=== PATIENT | female | born 1955 | race African-American/Black ===

== ENCOUNTER 2019-01-17 06:41 | Emergency (ER) | payer MEDICAID ==
[~2019-01-17] VITALS: Ht 160 cm; Wt 72.0 kg
[~2019-01-17 06:41] MED LIST: AMLO5TAB88 PO; ASPI-1160 PO; GLIP5TAB12 PO; INSLIS SUBCUT; LANTUSUD SUBCUT; LIP40 PO; LJ2 PO; METO25TA6 PO
[2019-01-17] MEDS ORDERED: ONDANSETRON HCL 4MG/2ML INJ IV STA (06:54)
[2019-01-17] MEDS ORDERED: SODIUM CHLORIDE 0.9% 1,000 ML IV ONE (06:54)
[2019-01-17 07:18] LABS: BASOPHILS % 1.3 % (0.0-2.0); EOSINOPHILS % 0.8 % (0.0-5.0); HEMATOCRIT. 37.3 % (36.0-48.0); HEMOGLOBIN. 12.2 g/dL (12.0-16.0); LYMPHOCYTES % 30.6 % (20.0-50.0); MEAN CORPUSCULAR HEMOGLOBIN 30.6 pg (28.0-32.0); MEAN PLATELET VOLUME 10.5 fl (7.4-10.4); MONOCYTES % 6.5 % (2.0-8.0); NEUTROPHILS % 60.8 % (40.0-76.0); PLATELET 243 x1000/uL (130-400); RED BLOOD CELL COUNT 3.97 mill/uL (4.2-5.4); RED CELL DISTRIBUTION WIDTH 13.6 % (11.6-14.6)
[2019-01-17 07:21] LABS: CHLORIDE 99 mEq/L (98-107)
[2019-01-17 07:22] LABS: INR 0.9; PROTHROMBIN TIME 9.7 sec (9.6-11.0)
[2019-01-17 09:07] LABS: CLARITY URINE CLEAR (CLEAR); COLOR URINE YELLOW (YELLOW); KETONES URINE 1+ (NEGATIVE); LEUKOCYTE ESTERASE URINE NEGATIVE (NEGATIVE); NITRITE URINE NEGATIVE (NEGATIVE); OCCULT BLOOD URINE 1+ (NEGATIVE); PH URINE 6.5 (4.5-8.0); PROTEIN URINE 3+ (NEGATIVE); SPECIFIC GRAVITY URINE 1.015 (1.005-1.030); UROBILINOGEN URINE 0.2 E.U./dL (0.2-1.0)
[2019-01-17] MEDS ORDERED: CEFTRIAXONE 1 G PREMIX 50 ML IV ONE (09:30)
[2019-01-17] MEDS ORDERED: LORAZEPAM 2MG/ML CPJ IV ONE (09:30)
[2019-01-17 13:00] VITALS: BP 138/72
== END 2019-01-17 13:20 | disposition home or self-care (01) ==
LOC: ER 06:50
DX: B34.9 Viral infection, unspecified (principal); N39.0 Urinary tract infection, site not specified; E11.22 Type 2 diabetes mellitus with diabetic chronic kidney disease; I12.9 Hypertensive chronic kidney disease with stage 1 through stage 4 chronic kidney disease, or unspecified chronic kidney disease; N18.9 Chronic kidney disease, unspecified; E11.65 Type 2 diabetes mellitus with hyperglycemia; Z79.4 Long term (current) use of insulin; R19.7 Diarrhea, unspecified; Z79.899 Other long term (current) drug therapy
CPT/HCPCS: 36415; 80053; 81003; 83690; 84484; 85025; 85610; 93005; 96361; 96365; 96375; 99284; J0696; J2060; J2405; J7030

== ENCOUNTER 2019-10-14 17:00 | Inpatient (IN) | payer MEDICAID ==
[~2019-10-14] VITALS: Ht 154.9 cm; Wt 72.6 kg
[~2019-10-14 17:00] MED LIST changes: -ASPI-1160 PO; +ASPI-1393 PO; +DILT30TA3 PO; +LORA2DIS5 IJ; +METH500T6 PO; +PANT40TA4 MT; +TRAM50TA3 PO
[2019-10-14] MEDS ORDERED: ONDANSETRON HCL 4MG/2ML INJ IV STA (17:50)
[2019-10-14] MEDS ORDERED: KETOROLAC 30MG/ML VIAL IV STA (17:50)
[2019-10-14] MEDS ORDERED: SODIUM CHLORIDE 0.9% 1,000 ML IV ONE (17:50)
[2019-10-14 18:45] LABS: BASOPHILS % 1.5 % (0.0-2.0); HEMATOCRIT. 37.5 % (36.0-48.0); HEMOGLOBIN. 12.4 g/dL (12.0-16.0); LYMPHOCYTES % 28.4 % (20.0-50.0); MEAN CORPUSCULAR VOLUME 90.4 fL (81.0-99.0); MEAN PLATELET VOLUME 10.1 fl (7.4-10.4); MONOCYTES % 6.4 % (2.0-8.0); NEUTROPHILS % 62.7 % (40.0-76.0); PLATELET 282 x1000/uL (130-400); RED BLOOD CELL COUNT 4.14 mill/uL (4.2-5.4); RED CELL DISTRIBUTION WIDTH 14.4 % (11.6-14.6)
[2019-10-14 19:54] LABS: CHLORIDE 103 mEq/L (98-107)
[2019-10-14 20:00] LABS: ETHANOL BLOOD < 10 mg/dL
[2019-10-14] MEDS ORDERED: ASPIRIN 81MG TABLET PO ONE (21:30)
[2019-10-14] MEDS ORDERED: FUROSEMIDE 40MG/4ML VIAL IV ONE (21:30)
[2019-10-14 22:10] LABS: CLARITY URINE CLOUDY (CLEAR); COLOR URINE YELLOW (YELLOW); KETONES URINE TRACE (NEGATIVE); LEUKOCYTE ESTERASE URINE NEGATIVE (NEGATIVE); NITRITE URINE NEGATIVE (NEGATIVE); OCCULT BLOOD URINE NEGATIVE (NEGATIVE); PROTEIN URINE 3+ (NEGATIVE); SPECIFIC GRAVITY URINE 1.014 (1.005-1.030)
[2019-10-14 22:22] LABS: *AMPHETAMINES SCREEN URINE NEGATIVE (NEGATIVE); *BARBITURATES SCREEN URINE NEGATIVE (NEGATIVE); *BENZODIAZEPINES SCREEN URINE NEGATIVE (NEGATIVE); *COCAINE SCREEN URINE NEGATIVE (NEGATIVE)
[2019-10-14 22:23] LABS: CANNABINOID URINE SCREEN PRESUMTIVE POSITIVE (NEGATIVE); METHADONE URINE SCREEN NEGATIVE (NEGATIVE); OPIATES URINE SCREEN NEGATIVE (NEGATIVE); PHENCYCLIDINE URINE SCREEN NEGATIVE (NEGATIVE)
[2019-10-15] MEDS ORDERED: ACETAMINOPHEN 325MG TABLET PO PRN (01:00)
[2019-10-15] MEDS: HYDROCODONE/ACETAMINOPHEN 5/325MG TABLET PO PRN ×3 (01:03→17:43)
[2019-10-15] MEDS: LORAZEPAM 2MG/ML CPJ IV PRN ×3 (11:18→22:42)
[2019-10-15] MEDS ORDERED: MORPHINE SULFATE 2 MG/ML CPJ (NOT FOR IM USE) IV ONE (12:30)
[2019-10-15 17:00] VITALS: BP 192/89
[2019-10-15 18:24] VITALS: BP 154/70
[2019-10-15] MEDS ORDERED: SODIUM POLYSTYRENE SULFONATE 15 G/60 ML BOT PO NR (20:00)
[2019-10-15 20:35] VITALS: BP 126/75
[2019-10-15] MEDS ORDERED: METOPROLOL TARTRATE 25MG TABLET PO SCH (21:00)
[2019-10-15] MEDS ORDERED: AMLODIPINE 5MG TABLET PO SCH (21:00)
[2019-10-15] MEDS ORDERED: INSULIN LISPRO 100 UNITS/ML SUBCUT SCH (21:00)
[2019-10-15 22:16] LABS: BG BASE EXCESS 0.2 mmol/L (-2.0-2.0); BG CARBOXYHEMOGLOBIN 0.3 % (0.5-1.5); BG DEOXYHEMOGLOBIN 3.8 % (0.0-5.0); BG FRACTION INSPIRED OXYGEN 21; BG HCO3 ACT 24.4 mmol/L (22.0-26.0); BG METHEMOGLOBIN 0.3 % (0.0-1.5); BG OXYGEN SATURATION 96.2 % (92.0-98.5); BG OXYHEMOGLOBIN 95.6 % (94.0-97.0); BG PCO2 37.8 mmHg (35.0-45.0); BG PH 7.427 (7.350-7.450); BG PO2 84.6 mmHg (75.0-100.0); BG SAMPLE SITE LEFT RADIAL; BG TOTAL HEMOGLOBIN 11.7 g/dL (12.0-18.0); BG VENT MODE NASAL CANNULA
[2019-10-15] MEDS: AMLODIPINE 10MG TABLET PO SCH (22:31)
[2019-10-15] MEDS: METOPROLOL TARTRATE 25MG TABLET PO SCH (22:32)
[2019-10-15] MEDS: CLONIDINE 0.1MG TABLET PO SCH (22:32)
[2019-10-15] MEDS: ATORVASTATIN CALCIUM 40MG TABLET PO SCH (22:32)
[2019-10-15] MEDS: INSULIN GLARGINE UD 100 UNITS/ML SYR SUBCUT SCH (22:58)
[2019-10-16 00:40] VITALS: BP 141/86
[2019-10-16 04:00] VITALS: BP 109/75
[2019-10-16 08:00] VITALS: BP 179/59
[2019-10-16] MEDS: LORAZEPAM 2MG/ML CPJ IV PRN ×2 (08:05→19:06)
[2019-10-16] MEDS ORDERED: DEXTROSE 50% WATER 50ML SYRINGE IV PRN (08:30)
[2019-10-16] MEDS ORDERED: DILTIAZEM HCL 30MG TABLET PO SCH (09:00)
[2019-10-16] MEDS ORDERED: FUROSEMIDE 20MG/2ML VIAL IV SCH (09:00)
[2019-10-16] MEDS: ASPIRIN 81MG EC TABLET PO SCH ×2 (09:00→09:16)
[2019-10-16] MEDS: GLIPIZIDE 5MG TABLET PO SCH ×2 (09:15→17:00)
[2019-10-16] MEDS: PANTOPRAZOLE 40MG DR TABLET PO SCH (09:15)
[2019-10-16] MEDS: METOPROLOL TARTRATE 25MG TABLET PO SCH ×2 (09:16→21:49)
[2019-10-16] MEDS: AMLODIPINE 10MG TABLET PO SCH (09:16)
[2019-10-16] MEDS: CLONIDINE 0.1MG TABLET PO SCH ×3 (09:16→21:57)
[2019-10-16] MEDS: HYDROCODONE/ACETAMINOPHEN 5/325MG TABLET PO PRN ×3 (09:16→21:50)
[2019-10-16 11:03] LABS: BASOPHILS % 0.9 % (0.0-2.0); EOSINOPHILS % 2.4 % (0.0-5.0); HEMATOCRIT. 32.3 % (36.0-48.0); HEMOGLOBIN. 10.4 g/dL (12.0-16.0); LYMPHOCYTES % 23.4 % (20.0-50.0); MEAN CORPUSCULAR HEMOGLOBIN 29.6 pg (28.0-32.0); MEAN CORPUSCULAR VOLUME 91.6 fL (81.0-99.0); MEAN PLATELET VOLUME 9.8 fl (7.4-10.4); MONOCYTES % 6.8 % (2.0-8.0); NEUTROPHILS % 66.5 % (40.0-76.0); PLATELET 228 x1000/uL (130-400); RED BLOOD CELL COUNT 3.52 mill/uL (4.2-5.4); RED CELL DISTRIBUTION WIDTH 13.9 % (11.6-14.6)
[2019-10-16 11:24] LABS: PHOSPHORUS 3.8 mg/dL (2.5-4.9)
[2019-10-16] MEDS: INSULIN GLARGINE UD 100 UNITS/ML SYR SUBCUT SCH ×2 (11:49→21:51)
[2019-10-16 12:00] VITALS: BP 90/50
[2019-10-16] MEDS: BLOOD SUGAR DIAGNOSTIC STRIP TEST SCH ×3 (12:20→20:58)
[2019-10-16] MEDS ORDERED: ONDANSETRON HCL 4MG/2ML INJ IV PRN (12:45)
[2019-10-16] MEDS ORDERED: METOCLOPRAMIDE HCL 10MG/2ML VIAL IV NR (12:45)
[2019-10-16] MEDS: INSULIN LISPRO 100 UNITS/ML SUBCUT SCH ×3 (13:19→21:51)
[2019-10-16] MEDS: PREDNISONE 20MG TABLET PO SCH (15:19)
[2019-10-16 16:00] VITALS: BP 108/58
[2019-10-16 20:48] VITALS: BP 121/57
[2019-10-16] MEDS: ATORVASTATIN CALCIUM 40MG TABLET PO SCH (21:49)
[2019-10-17 00:39] VITALS: BP 139/70
[2019-10-17 04:48] VITALS: BP 161/73
[2019-10-17] MEDS: CLONIDINE 0.1MG TABLET PO SCH ×2 (05:15→14:00)
[2019-10-17] MEDS: LORAZEPAM 2MG/ML CPJ IV PRN ×2 (05:15→08:50)
[2019-10-17] MEDS: BLOOD SUGAR DIAGNOSTIC STRIP TEST SCH ×2 (06:31→12:56)
[2019-10-17] MEDS: INSULIN LISPRO 100 UNITS/ML SUBCUT SCH ×2 (07:50→12:50)
[2019-10-17 07:55] VITALS: BP 144/61
[2019-10-17] MEDS: METOPROLOL TARTRATE 25MG TABLET PO SCH (08:48)
[2019-10-17] MEDS: PANTOPRAZOLE 40MG DR TABLET PO SCH (08:48)
[2019-10-17] MEDS: GLIPIZIDE 5MG TABLET PO SCH (08:48)
[2019-10-17] MEDS: AMLODIPINE 10MG TABLET PO SCH (08:49)
[2019-10-17] MEDS: HYDROCODONE/ACETAMINOPHEN 5/325MG TABLET PO PRN (08:50)
[2019-10-17] MEDS: ASPIRIN 81MG EC TABLET PO SCH (09:00)
[2019-10-17] MEDS: PREDNISONE 20MG TABLET PO SCH (09:00)
[2019-10-17 09:14] LABS: BASOPHILS % 0.9 % (0.0-2.0); HEMATOCRIT. 33.6 % (36.0-48.0); HEMOGLOBIN. 11.1 g/dL (12.0-16.0); MEAN CORPUSCULAR VOLUME 90.9 fL (81.0-99.0); MEAN PLATELET VOLUME 9.9 fl (7.4-10.4); MONOCYTES % 5.5 % (2.0-8.0); NEUTROPHILS % 71.6 % (40.0-76.0); PLATELET 245 x1000/uL (130-400)
[2019-10-17 09:38] LABS: PHOSPHORUS 3.5 mg/dL (2.5-4.9)
[2019-10-17] MEDS: INSULIN GLARGINE UD 100 UNITS/ML SYR SUBCUT SCH (10:16)
[2019-10-17 11:52] VITALS: BP 121/40
[2019-10-17] MEDS ORDERED: POTASSIUM CHLORIDE 20MEQ TABLET SR PO SCH (15:15)
[2019-10-17 16:05] VITALS: BP 123/76
[2019-10-17 18:00] VITALS: BP 123/76
== END 2019-10-17 18:35 | disposition home or self-care (01) | DRG 241 ==
LOC: ER 17:00 → 6WST 21:28 → EDBEDREQTM 21:35 → EDBEDREQ 21:35 → ENRESERV 10-15 14:48 → CMPBEDREQ 10-16 06:52
PROVIDERS: ADMIT Internal Medicine; ATTEND Internal Medicine
DX: K29.70 Gastritis, unspecified, without bleeding (principal); N17.9 Acute kidney failure, unspecified; E44.0 Moderate protein-calorie malnutrition; E87.2 Acidosis; I50.9 Heart failure, unspecified; E11.22 Type 2 diabetes mellitus with diabetic chronic kidney disease; I13.0 Hypertensive heart and chronic kidney disease with heart failure and stage 1 through stage 4 chronic kidney disease, or unspecified chronic kidney disease; N18.3 Chronic kidney disease, stage 3 (moderate); F20.9 Schizophrenia, unspecified; E78.5 Hyperlipidemia, unspecified; E87.1 Hypo-osmolality and hyponatremia; E87.5 Hyperkalemia; J45.909 Unspecified asthma, uncomplicated; M19.90 Unspecified osteoarthritis, unspecified site; F31.9 Bipolar disorder, unspecified; E11.51 Type 2 diabetes mellitus with diabetic peripheral angiopathy without gangrene; E11.65 Type 2 diabetes mellitus with hyperglycemia; X58.XXXA Exposure to other specified factors, initial encounter; M10.9 Gout, unspecified; F17.200 Nicotine dependence, unspecified, uncomplicated; T78.3XXA Angioneurotic edema, initial encounter; Z82.49 Family history of ischemic heart disease and other diseases of the circulatory system; Z86.73 Personal history of transient ischemic attack (TIA), and cerebral infarction without residual deficits; Z88.8 Allergy status to other drugs, medicaments and biological substances; Z83.3 Family history of diabetes mellitus; Z88.0 Allergy status to penicillin; Z79.899 Other long term (current) drug therapy; Z79.82 Long term (current) use of aspirin; Z79.4 Long term (current) use of insulin; Z68.30 Body mass index [BMI] 30.0-30.9, adult; Y93.89 Activity, other specified; Y92.89 Other specified places as the place of occurrence of the external cause; Y99.8 Other external cause status
CPT/HCPCS: 36415; 36600; 71045; 76770; 80048; 80053; 80305; 80320; 81003; 82375; 82533; 82550; 82805; 82962; 83735; 83880; 84100; 84443; 84484; 85025; 93005; 96361; 96374; 96375; 99285; C1893; J1815; J1885; J1940; J2060; J2270; J2405; J2765; J7030; J7512; G0480

== ENCOUNTER 2019-11-20 10:04 | Inpatient (IN) | payer MEDICARE, MEDICAID ==
[~2019-11-20] VITALS: Ht 154.9 cm; Wt 76.2 kg
[~2019-11-20 10:04] MED LIST changes: -ASPI-1393 PO; +ASPI-1497 PO; -TRAM50TA3 PO
[2019-11-20] MEDS ORDERED: CLONIDINE 0.2MG TABLET PO ONE (11:45)
[2019-11-20] MEDS ORDERED: MORPHINE SULFATE 4 MG/ML CPJ (NOT FOR IM USE) IV ONE (11:45)
[2019-11-20 12:32] LABS: BASOPHILS % 0.7 % (0.0-2.0); EOSINOPHILS % 0.1 % (0.0-5.0); HEMATOCRIT. 39.6 % (36.0-48.0); HEMOGLOBIN. 12.9 g/dL (12.0-16.0); LYMPHOCYTES % 18.5 % (20.0-50.0); MEAN CORPUSCULAR HEMOGLOBIN 29.8 pg (28.0-32.0); MEAN CORPUSCULAR VOLUME 91.5 fL (81.0-99.0); MONOCYTES % 4.8 % (2.0-8.0); NEUTROPHILS % 75.9 % (40.0-76.0); PLATELET 345 x1000/uL (130-400); RED BLOOD CELL COUNT 4.33 mill/uL (4.2-5.4); RED CELL DISTRIBUTION WIDTH 14.3 % (11.6-14.6)
[2019-11-20 13:22] LABS: CLARITY URINE CLEAR (CLEAR); COLOR URINE YELLOW (YELLOW); KETONES URINE 2+ (NEGATIVE); LEUKOCYTE ESTERASE URINE NEGATIVE (NEGATIVE); NITRITE URINE NEGATIVE (NEGATIVE); OCCULT BLOOD URINE 1+ (NEGATIVE); PH URINE 5.5 (4.5-8.0); PROTEIN URINE 3+ (NEGATIVE); SPECIFIC GRAVITY URINE 1.018 (1.005-1.030); UROBILINOGEN URINE 0.2 E.U./dL (0.2-1.0)
[2019-11-20] MEDS ORDERED: METRONIDAZOLE 500 MG PREMIX 100 ML IV ONE (13:30)
[2019-11-20] MEDS ORDERED: LEVOFLOXACIN 500MG PREMIX 100 ML IV ONE (13:30)
[2019-11-20] MEDS ORDERED: DEXTROSE 50% WATER 50ML SYRINGE IV PRN (21:00)
[2019-11-20] MEDS: MORPHINE SULFATE 2 MG/ML CPJ (NOT FOR IM USE) IV PRN (21:21)
[2019-11-21] MEDS: BLOOD SUGAR DIAGNOSTIC STRIP TEST SCH ×5 (03:00→22:12)
[2019-11-21] MEDS: INSULIN LISPRO (LOW DOSE) 100 UNITS/ML SUBCUT SCH ×5 (03:15→22:12)
[2019-11-21 04:57] LABS: BASOPHILS % 1.3 % (0.0-2.0); EOSINOPHILS % 1.5 % (0.0-5.0); HEMATOCRIT. 34.2 % (36.0-48.0); MEAN CORPUSCULAR HEMOGLOBIN 29.3 pg (28.0-32.0); MEAN CORPUSCULAR VOLUME 91.2 fL (81.0-99.0); MEAN PLATELET VOLUME 9.3 fl (7.4-10.4); MONOCYTES % 9.4 % (2.0-8.0); NEUTROPHILS % 61.8 % (40.0-76.0); PLATELET 316 x1000/uL (130-400); RED BLOOD CELL COUNT 3.75 mill/uL (4.2-5.4); RED CELL DISTRIBUTION WIDTH 13.9 % (11.6-14.6)
[2019-11-21 05:05] LABS: CHLORIDE 105 mEq/L (98-107)
[2019-11-21] MEDS: MORPHINE SULFATE 2 MG/ML CPJ (NOT FOR IM USE) IV PRN ×3 (06:43→22:22)
[2019-11-21] MEDS: CLONIDINE 0.1MG TABLET PO PRN (08:00)
[2019-11-21 10:00] VITALS: BP_SYST 111; BP_SYST 134; BP_DIAS 70; BP_DIAS 72
[2019-11-21] MEDS ORDERED: BISACODYL 10MG SUPP PR PRN (10:45)
[2019-11-21] MEDS ORDERED: LEVOFLOXACIN 500MG TABLET PO SCH (11:00)
[2019-11-21] MEDS ORDERED: LEVOFLOXACIN 250MG TABLET PO SCH (11:00)
[2019-11-21] MEDS: PHENYLEPHRINE/SHK LV/MO/PET,WH RECTAL OINT 57GM PR SCH ×3 (12:58→23:37)
[2019-11-21] MEDS ORDERED: SORBITOL 70% SOLN 30ML PO SCH (13:00)
[2019-11-21] MEDS ORDERED: METRONIDAZOLE 500MG TABLET PO SCH (14:00)
[2019-11-21 16:00] VITALS: BP 124/53
[2019-11-21 20:00] VITALS: BP 126/81
[2019-11-22] VITALS: BP 144/81
[2019-11-22 04:00] VITALS: BP 149/66
[2019-11-22] MEDS: PHENYLEPHRINE/SHK LV/MO/PET,WH RECTAL OINT 57GM PR SCH (06:00)
[2019-11-22] MEDS: BLOOD SUGAR DIAGNOSTIC STRIP TEST SCH (06:30)
[2019-11-22 07:46] VITALS: BP 157/79
[2019-11-22 08:00] VITALS: BP 157/79
[2019-11-22] MEDS: INSULIN LISPRO (LOW DOSE) 100 UNITS/ML SUBCUT SCH (08:10)
[2019-11-22 10:26] VITALS: BP 157/79
[2019-11-22] MEDS: MORPHINE SULFATE 2 MG/ML CPJ (NOT FOR IM USE) IV PRN (10:26)
[2019-12-08] MEDS ORDERED: GABA-529 MT (01:31)
== END 2019-11-22 11:22 | disposition home or self-care (01) | DRG 247 ==
LOC: ER 10:04 → 7WST 14:51 → EDBEDREQTM 20:36 → EDBEDREQSVC 20:36 → EDBEDREQDT 11-21 05:32 → EDBEDREQSVC 11-21 05:32 → EDBEDREQTM 11-21 05:32 → ENRESERV 11-21 05:37 → CANRESERV 11-21 05:38 → ENRESERV 11-21 05:38 → EDBEDREQSVC 11-21 05:45 → EDBEDREQTM 11-21 05:45 → ENRESERV 11-21 08:38
PROVIDERS: ADMIT Internal Medicine; ATTEND Internal Medicine
DX: K56.41 Fecal impaction (principal); N17.0 Acute kidney failure with tubular necrosis; E88.09 Other disorders of plasma-protein metabolism, not elsewhere classified; K64.9 Unspecified hemorrhoids; M85.80 Other specified disorders of bone density and structure, unspecified site; M10.9 Gout, unspecified; K92.1 Melena; E11.9 Type 2 diabetes mellitus without complications; I10 Essential (primary) hypertension; K57.90 Diverticulosis of intestine, part unspecified, without perforation or abscess without bleeding; Z79.4 Long term (current) use of insulin; Z79.899 Other long term (current) drug therapy; Z79.82 Long term (current) use of aspirin; Z88.0 Allergy status to penicillin; Z88.8 Allergy status to other drugs, medicaments and biological substances
CPT/HCPCS: 36415; 72100; 72192; 80048; 80053; 81003; 82962; 84550; 85025; 93005; 99285; J1815; J1956; J2270; J3490

== ENCOUNTER 2020-09-15 07:42 | Inpatient (IN) | payer MEDICARE, MEDICAID ==
[~2020-09-15] VITALS: Ht 165.1 cm; Wt 72.6 kg
[~2020-09-15 07:42] MED LIST changes: +GABA-529 MT
[2020-09-15] MEDS ORDERED: SODIUM CHLORIDE 0.9% 1,000 ML IV ONE ×2 (08:45→11:15)
[2020-09-15 09:42] LABS: BASOPHILS % 0.4 % (0.0-2.0); HEMATOCRIT. 35.7 % (36.0-48.0); HEMOGLOBIN. 11.7 g/dL (12.0-16.0); LYMPHOCYTES % 8.6 % (20.0-50.0); MEAN CORPUSCULAR HEMOGLOBIN 30.7 pg (28.0-32.0); MEAN CORPUSCULAR VOLUME 93.2 fL (81.0-99.0); MEAN PLATELET VOLUME 10.1 fl (7.4-10.4); MONOCYTES % 2.6 % (2.0-8.0); NEUTROPHILS % 88.4 % (40.0-76.0); PLATELET 299 x1000/uL (130-400); RED BLOOD CELL COUNT 3.83 mill/uL (4.2-5.4); RED CELL DISTRIBUTION WIDTH 13.5 % (11.6-14.6)
[2020-09-15 10:01] LABS: BG BASE EXCESS -4.9 mmol/L (-2.0-2.0); BG CARBOXYHEMOGLOBIN 0.3 % (0.5-1.5); BG DEOXYHEMOGLOBIN 1.7 % (0.0-5.0); BG METHEMOGLOBIN 0.4 % (0.0-1.5); BG OXYGEN SATURATION 98.3 % (92.0-98.5); BG OXYHEMOGLOBIN 97.6 % (94.0-97.0); BG PCO2 23.1 mmHg (35.0-45.0); BG PH 7.484 (7.350-7.450); BG PO2 118.2 mmHg (75.0-100.0); BG SAMPLE SITE RIGHT RADIAL; BG TOTAL HEMOGLOBIN 11.2 g/dL (12.0-18.0); BG VENT MODE ROOM AIR
[2020-09-15 10:26] LABS: CHLORIDE 101 mEq/L (98-107)
[2020-09-15] MEDS ORDERED: MORPHINE SULFATE 4 MG/ML CPJ (NOT FOR IM USE) IV ONE (10:30)
[2020-09-15] MEDS ORDERED: ONDANSETRON HCL 4MG/2ML INJ IV ONE (10:30)
[2020-09-15 10:41] LABS: BETA HYDROXYBUTYRATE 2.8 mMol/L (0.0-0.3)
[2020-09-15] MEDS ORDERED: INSULIN REGULAR (HUMULIN R) 300UNITS/3ML VIAL IV ONE (11:15)
[2020-09-15 11:32] LABS: CLARITY URINE CLEAR (CLEAR); COLOR URINE YELLOW (YELLOW); KETONES URINE 2+ (NEGATIVE); LEUKOCYTE ESTERASE URINE NEGATIVE (NEGATIVE); NITRITE URINE NEGATIVE (NEGATIVE); OCCULT BLOOD URINE 1+ (NEGATIVE); PH URINE 5.5 (4.5-8.0); PROTEIN URINE 4+ (NEGATIVE); SPECIFIC GRAVITY URINE 1.023 (1.005-1.030); UROBILINOGEN URINE 0.2 E.U./dL (0.2-1.0)
[2020-09-15] MEDS ORDERED: LABETALOL 5MG/ML SYR 20 MG/4 ML SYRINGE IV NR (15:15)
[2020-09-15] MEDS: MORPHINE SULFATE 2 MG/ML CPJ (NOT FOR IM USE) IV PRN ×2 (15:17→19:44)
[2020-09-15] MEDS: ONDANSETRON HCL 4MG/2ML INJ IV PRN ×2 (15:17→19:44)
[2020-09-15] MEDS ORDERED: CLONIDINE 0.1MG TABLET PO PRN (16:00)
[2020-09-15] MEDS ORDERED: SODIUM CHLORIDE 0.9% 1,000 ML IV SCH ×2 (16:00→20:15)
[2020-09-15] MEDS: BLOOD SUGAR DIAGNOSTIC STRIP TEST SCH (17:38)
[2020-09-15] MEDS ORDERED: HYDRALAZINE HCL 100MG TABLET PO NR (17:45)
[2020-09-15] MEDS ORDERED: INSULIN GLARGINE UD 100 UNITS/ML SYR SUBCUT NR (18:00)
[2020-09-15] MEDS: INSULIN LISPRO 100 UNITS/ML SUBCUT SCH (18:29)
[2020-09-15] MEDS ORDERED: POTASSIUM CHLORIDE INJ 40 MEQ in DEXT 5% WATER 250 ML IV NR (18:30)
[2020-09-15] MEDS ORDERED: SODIUM CHLORIDE 0.9% 100 ML IV ONE (19:30)
[2020-09-16] MEDS ORDERED: INSULIN GLARGINE UD 100 UNITS/ML SYR SUBCUT SCH
[2020-09-16] MEDS: HYDRALAZINE HCL 100MG TABLET PO SCH ×2 (00:30→05:35)
[2020-09-16 01:45] LABS: HEMATOCRIT 34.6 % (36.0-48.0); HEMOGLOBIN 11.6 g/dL (12.0-16.0)
[2020-09-16 04:30] VITALS: BP_SYST 152; BP_SYST 216; BP_DIAS 74; BP_DIAS 90
[2020-09-16] MEDS: SODIUM CHLORIDE 0.9% 1,000 ML IV SCH ×2 (07:30→18:36)
[2020-09-16] MEDS ORDERED: ONDANSETRON HCL 4MG/2ML INJ IV PRN (07:30)
[2020-09-16] MEDS ORDERED: DOCUSATE SODIUM 100MG CAPSULE PO PRN (07:30)
[2020-09-16] MEDS: BLOOD SUGAR DIAGNOSTIC STRIP TEST SCH ×4 (07:40→20:41)
[2020-09-16 08:00] VITALS: BP 97/64
[2020-09-16] MEDS ORDERED: ENOXAPARIN 40MG/0.4ML SYR SUBCUT SCH (09:00)
[2020-09-16] MEDS: PANTOPRAZOLE SODIUM 40 MG/VIAL IV SCH (09:00)
[2020-09-16 09:41] LABS: *AMPHETAMINES SCREEN URINE NEGATIVE (NEGATIVE); *BARBITURATES SCREEN URINE NEGATIVE (NEGATIVE); *BENZODIAZEPINES SCREEN URINE NEGATIVE (NEGATIVE); *COCAINE SCREEN URINE NEGATIVE (NEGATIVE)
[2020-09-16 09:43] LABS: CANNABINOID URINE SCREEN PRESUMTIVE POSITIVE (NEGATIVE); METHADONE URINE SCREEN NEGATIVE (NEGATIVE); OPIATES URINE SCREEN PRESUMTIVE POSITIVE (NEGATIVE); PHENCYCLIDINE URINE SCREEN NEGATIVE (NEGATIVE)
[2020-09-16] MEDS: INSULIN GLARGINE UD 100 UNITS/ML SYR SUBCUT SCH ×2 (09:48→22:08)
[2020-09-16] MEDS: INSULIN LISPRO 100 UNITS/ML SUBCUT SCH ×4 (09:50→22:08)
[2020-09-16] MEDS: HYDROCODONE/ACETAMINOPHEN 5/325MG TABLET PO PRN (10:00)
[2020-09-16 10:09] LABS: BASOPHILS % 0.6 % (0.0-2.0); HEMATOCRIT. 35.7 % (36.0-48.0); HEMOGLOBIN. 11.7 g/dL (12.0-16.0); LYMPHOCYTES % 7.7 % (20.0-50.0); MEAN CORPUSCULAR HEMOGLOBIN 30.4 pg (28.0-32.0); MEAN CORPUSCULAR VOLUME 92.7 fL (81.0-99.0); MEAN PLATELET VOLUME 9.8 fl (7.4-10.4); MONOCYTES % 6.7 % (2.0-8.0); PLATELET 280 x1000/uL (130-400); RED BLOOD CELL COUNT 3.85 mill/uL (4.2-5.4); RED CELL DISTRIBUTION WIDTH 13.4 % (11.6-14.6)
[2020-09-16] MEDS: ASPIRIN 81MG TABLET PO SCH (11:28)
[2020-09-16 12:00] VITALS: BP 118/68
[2020-09-16] MEDS ORDERED: POTASSIUM CHLORIDE INJ 40 MEQ in DEXT 5% WATER 250 ML IV NR (12:00)
[2020-09-16] MEDS ORDERED: POTASSIUM CHLORIDE 20MEQ/PACKET PO NR (12:00)
[2020-09-16] MEDS: METOCLOPRAMIDE HCL 10MG/2ML VIAL IV SCH ×3 (12:00→18:34)
[2020-09-16] MEDS ORDERED: LIDOCAINE HCL 1% 20ML VIAL (Pyxis) INJ ONE (12:48)
[2020-09-16] MEDS ORDERED: LORAZEPAM 2MG/ML CPJ IM SCH (15:00)
[2020-09-16] MEDS ORDERED: LORAZEPAM 2MG/ML CPJ ONE (15:07)
[2020-09-16] MEDS: HYDRALAZINE HCL 50MG TABLET PO SCH ×3 (15:16→22:07)
[2020-09-16 16:00] VITALS: BP 144/54
[2020-09-16 17:34] LABS: CREATINE KINASE MB FRACTION 18.1 ng/mL (0.5-3.6)
[2020-09-16 20:00] VITALS: BP 137/66
[2020-09-16] MEDS: ATORVASTATIN CALCIUM 40MG TABLET PO SCH ×2 (21:00→22:07)
[2020-09-16] MEDS: LORAZEPAM 2MG/ML CPJ IV PRN (23:18)
[2020-09-17] VITALS: BP 134/72
[2020-09-17] MEDS: METOCLOPRAMIDE HCL 10MG/2ML VIAL IV SCH ×7 (00:34→23:29)
[2020-09-17 01:45] LABS: CREATINE KINASE MB FRACTION 17.8 ng/mL (0.5-3.6)
[2020-09-17 01:50] LABS: ETHANOL BLOOD < 10 mg/dL
[2020-09-17 01:56] LABS: T4 FREE 1.86 ng/dL (0.76-1.46)
[2020-09-17 02:09] LABS: VITAMIN B12 SERUM 867 pg/mL (211-911)
[2020-09-17 02:13] LABS: FOLIC ACID (FOLATE) SERUM > 20.00 ng/mL (>5.38)
[2020-09-17 04:00] VITALS: BP 116/80
[2020-09-17] MEDS: SODIUM CHLORIDE 0.9% 1,000 ML IV SCH ×2 (04:25→17:46)
[2020-09-17] MEDS: HYDRALAZINE HCL 50MG TABLET PO SCH ×2 (06:10→17:00)
[2020-09-17] MEDS: BLOOD SUGAR DIAGNOSTIC STRIP TEST SCH ×4 (06:42→21:55)
[2020-09-17] MEDS ORDERED: GLIPIZIDE 5MG TABLET PO SCH (07:40)
[2020-09-17 08:00] VITALS: BP 115/63
[2020-09-17] MEDS: LORAZEPAM 2MG/ML CPJ IV PRN ×2 (08:34→18:54)
[2020-09-17] MEDS: PANTOPRAZOLE SODIUM 40 MG/VIAL IV SCH (08:34)
[2020-09-17] MEDS: INSULIN LISPRO 100 UNITS/ML SUBCUT SCH ×4 (08:36→21:00)
[2020-09-17] MEDS: ASPIRIN 81MG TABLET PO SCH (08:36)
[2020-09-17] MEDS ORDERED: ENOXAPARIN 30MG/0.3ML SYR SUBCUT SCH (09:00)
[2020-09-17] MEDS ORDERED: ENOXAPARIN 40MG/0.4ML SYR SUBCUT NR (10:30)
[2020-09-17] MEDS ORDERED: METOPROLOL TARTRATE 25MG TABLET PO SCH (10:30)
[2020-09-17] MEDS: INSULIN GLARGINE UD 100 UNITS/ML SYR SUBCUT SCH ×2 (11:15→22:00)
[2020-09-17 16:00] VITALS: BP 102/51
[2020-09-17 20:00] VITALS: BP 121/67
[2020-09-17] MEDS: ATORVASTATIN CALCIUM 40MG TABLET PO SCH (21:54)
[2020-09-17] MEDS: METOPROLOL TARTRATE 50MG TABLET PO SCH (21:54)
[2020-09-17] MEDS: DEXTROSE 50% WATER 50ML SYRINGE IV PRN (22:12)
[2020-09-17] MEDS: DEXT 5%/0.9% NACL 1,000 ML IV SCH (23:52)
[2020-09-18] VITALS: BP 148/57
[2020-09-18] MEDS: LORAZEPAM 2MG/ML CPJ IV PRN ×2 (00:08→12:07)
[2020-09-18] MEDS: HYDROCODONE/ACETAMINOPHEN 5/325MG TABLET PO PRN ×2 (02:47→16:25)
[2020-09-18 04:00] VITALS: BP 159/90
[2020-09-18] MEDS: METOCLOPRAMIDE HCL 10MG/2ML VIAL IV SCH (06:03)
[2020-09-18] MEDS: BLOOD SUGAR DIAGNOSTIC STRIP TEST SCH ×4 (06:03→20:52)
[2020-09-18] MEDS: INSULIN LISPRO 100 UNITS/ML SUBCUT SCH ×4 (06:32→20:52)
[2020-09-18 06:41] LABS: BASOPHILS % 0.4 % (0.0-2.0); EOSINOPHILS % 0.1 % (0.0-5.0); HEMOGLOBIN. 10.4 g/dL (12.0-16.0); LYMPHOCYTES % 27.3 % (20.0-50.0); MEAN CORPUSCULAR HEMOGLOBIN 30.9 pg (28.0-32.0); MEAN PLATELET VOLUME 9.7 fl (7.4-10.4); MONOCYTES % 11.7 % (2.0-8.0); NEUTROPHILS % 60.5 % (40.0-76.0); PLATELET 202 x1000/uL (130-400); RED BLOOD CELL COUNT 3.36 mill/uL (4.2-5.4); RED CELL DISTRIBUTION WIDTH 13.6 % (11.6-14.6)
[2020-09-18 08:00] VITALS: BP 148/79
[2020-09-18] MEDS: ASPIRIN 81MG TABLET PO SCH (08:22)
[2020-09-18] MEDS: PANTOPRAZOLE SODIUM 40 MG/VIAL IV SCH ×2 (08:22→16:22)
[2020-09-18] MEDS: METOPROLOL TARTRATE 50MG TABLET PO SCH (08:23)
[2020-09-18] MEDS: HYDRALAZINE HCL 50MG TABLET PO SCH ×2 (08:23→15:08)
[2020-09-18] MEDS: ENOXAPARIN 80MG/0.8ML SYR SUBCUT SCH (08:24)
[2020-09-18 08:51] LABS: PROTHROMBIN TIME 10.4 sec (9.6-11.0)
[2020-09-18] MEDS ORDERED: POTASSIUM CHLORIDE 20MEQ/PACKET PO NR (09:30)
[2020-09-18] MEDS: INSULIN GLARGINE UD 100 UNITS/ML SYR SUBCUT SCH (10:00)
[2020-09-18] MEDS: MORPHINE SULFATE 2 MG/ML CPJ (NOT FOR IM USE) IV PRN ×2 (10:56→20:54)
[2020-09-18 12:00] VITALS: BP 159/73
[2020-09-18] MEDS: DEXTROSE 50% WATER 50ML SYRINGE IV PRN (12:13)
[2020-09-18] MEDS ORDERED: POTASSIUM CHLORIDE 20MEQ/PACKET PO SCH (13:15)
[2020-09-18 16:00] VITALS: BP 130/51
[2020-09-18] MEDS: METOPROLOL TARTRATE 100MG TABLET PO SCH ×2 (16:25→20:52)
[2020-09-18 20:00] VITALS: BP 130/55
[2020-09-18] MEDS: ATORVASTATIN CALCIUM 40MG TABLET PO SCH (20:52)
[2020-09-18] MEDS ORDERED: METOPROLOL TARTRATE 100MG TABLET PO SCH (21:00)
[2020-09-18] MEDS: DEXT 5%/0.9% NACL 1,000 ML IV SCH (21:04)
[2020-09-19] VITALS: BP 135/56
[2020-09-19] MEDS: MORPHINE SULFATE 2 MG/ML CPJ (NOT FOR IM USE) IV PRN ×5 (02:00→23:58)
[2020-09-19 04:00] VITALS: BP 143/73
[2020-09-19] MEDS: METOPROLOL TARTRATE 100MG TABLET PO SCH ×4 (06:09→21:26)
[2020-09-19] MEDS: BLOOD SUGAR DIAGNOSTIC STRIP TEST SCH ×4 (06:20→21:28)
[2020-09-19] MEDS: INSULIN LISPRO 100 UNITS/ML SUBCUT SCH ×4 (06:20→21:00)
[2020-09-19 06:50] LABS: BASOPHILS % 0.5 % (0.0-2.0); EOSINOPHILS % 0.7 % (0.0-5.0); HEMATOCRIT. 29.1 % (36.0-48.0); HEMOGLOBIN. 9.6 g/dL (12.0-16.0); LYMPHOCYTES % 33.1 % (20.0-50.0); MEAN CORPUSCULAR VOLUME 93.8 fL (81.0-99.0); MEAN PLATELET VOLUME 10.1 fl (7.4-10.4); MONOCYTES % 11.2 % (2.0-8.0); NEUTROPHILS % 54.5 % (40.0-76.0); PLATELET 179 x1000/uL (130-400); RED BLOOD CELL COUNT 3.11 mill/uL (4.2-5.4); RED CELL DISTRIBUTION WIDTH 13.5 % (11.6-14.6)
[2020-09-19 08:00] VITALS: BP 192/64
[2020-09-19] MEDS ORDERED: POTASSIUM CHLORIDE 20MEQ/PACKET PO NR ×2 (09:02→13:00)
[2020-09-19] MEDS: HYDROCODONE/ACETAMINOPHEN 5/325MG TABLET PO PRN (09:20)
[2020-09-19] MEDS: HYDRALAZINE HCL 50MG TABLET PO SCH ×2 (09:20→17:31)
[2020-09-19] MEDS: ENOXAPARIN 80MG/0.8ML SYR SUBCUT SCH (09:21)
[2020-09-19] MEDS: ASPIRIN 81MG TABLET PO SCH (09:21)
[2020-09-19] MEDS: PANTOPRAZOLE SODIUM 40 MG/VIAL IV SCH ×2 (09:21→17:31)
[2020-09-19] MEDS ORDERED: REGADENOSON 0.4 MG/5 ML IV NR (10:45)
[2020-09-19 12:00] VITALS: BP 139/58
[2020-09-19] MEDS: LORAZEPAM 2MG/ML CPJ IV PRN ×2 (14:33→20:29)
[2020-09-19 16:00] VITALS: BP 154/52
[2020-09-19 20:00] VITALS: BP 165/94
[2020-09-19] MEDS: ATORVASTATIN CALCIUM 40MG TABLET PO SCH (21:00)
[2020-09-20] VITALS: BP 168/72
[2020-09-20 04:20] VITALS: BP 184/66
[2020-09-20] MEDS: MORPHINE SULFATE 2 MG/ML CPJ (NOT FOR IM USE) IV PRN ×5 (04:20→22:26)
[2020-09-20] MEDS: METOPROLOL TARTRATE 100MG TABLET PO SCH ×2 (06:09→14:07)
[2020-09-20] MEDS: BLOOD SUGAR DIAGNOSTIC STRIP TEST SCH ×4 (06:38→21:00)
[2020-09-20 07:23] LABS: HEMATOCRIT. 28.8 % (36.0-48.0); HEMOGLOBIN. 9.4 g/dL (12.0-16.0); MEAN CORPUSCULAR HEMOGLOBIN 30.8 pg (28.0-32.0); MEAN CORPUSCULAR VOLUME 93.8 fL (81.0-99.0); MEAN PLATELET VOLUME 10.6 fl (7.4-10.4); PLATELET 165 x1000/uL (130-400); RED BLOOD CELL COUNT 3.07 mill/uL (4.2-5.4); RED CELL DISTRIBUTION WIDTH 13.9 % (11.6-14.6)
[2020-09-20] MEDS: INSULIN LISPRO 100 UNITS/ML SUBCUT SCH ×4 (07:24→21:00)
[2020-09-20 08:00] VITALS: BP 163/62
[2020-09-20] MEDS: ASPIRIN 81MG TABLET PO SCH (08:14)
[2020-09-20] MEDS: PANTOPRAZOLE SODIUM 40 MG/VIAL IV SCH ×2 (08:14→16:47)
[2020-09-20] MEDS: HYDRALAZINE HCL 50MG TABLET PO SCH ×2 (08:15→16:44)
[2020-09-20] MEDS: AMLODIPINE 2.5MG TABLET PO SCH ×2 (10:54→21:06)
[2020-09-20] MEDS: DEXT 5%/0.9% NACL 1,000 ML IV SCH ×2 (11:45→16:46)
[2020-09-20] MEDS: HYDROCODONE/ACETAMINOPHEN 5/325MG TABLET PO PRN ×3 (11:47→21:55)
[2020-09-20 12:00] VITALS: BP 147/60
[2020-09-20] MEDS ORDERED: CEFTRIAXONE 1 G PREMIX 50 ML IV SCH (15:30)
[2020-09-20] MEDS ORDERED: ONDANSETRON HCL 4MG/2ML INJ IV PRN (15:30)
[2020-09-20] MEDS ORDERED: MAGNESIUM/ALUMINUM HYDROXIDE/SIMETHICONE 30ML UDC PO PRN (15:30)
[2020-09-20] MEDS ORDERED: ENOXAPARIN 40MG/0.4ML SYR SUBCUT SCH (15:30)
[2020-09-20] MEDS ORDERED: CLONIDINE 0.1MG TABLET PO PRN (15:30)
[2020-09-20 16:00] VITALS: BP 146/55
[2020-09-20] MEDS ORDERED: AZITHROMYCIN 500 MG in DEXT 5% WATER 250 ML IV SCH (16:30)
[2020-09-20] MEDS: THIAMINE HCL 100MG TABLET PO SCH (16:42)
[2020-09-20] MEDS: SODIUM CHLORIDE 0.9% 1,000 ML IV SCH (17:03)
[2020-09-20] MEDS: METOCLOPRAMIDE HCL 10MG/2ML VIAL IV PRN (17:03)
[2020-09-20] MEDS ORDERED: CEFTRIAXONE 1,000 MG in DEXTROSE 5% WATER 50 ML IV SCH (18:00)
[2020-09-20] MEDS: LORAZEPAM 2MG/ML CPJ IV PRN (19:07)
[2020-09-20 20:00] VITALS: BP 129/53
[2020-09-20] MEDS: ATORVASTATIN CALCIUM 40MG TABLET PO SCH (21:00)
[2020-09-20] MEDS: METOPROLOL TARTRATE 50MG TABLET PO SCH (21:06)
[2020-09-20 22:56] LABS: PLATELET ESTIMATE NORMAL
[2020-09-21] VITALS: BP 152/47
[2020-09-21] MEDS: METOCLOPRAMIDE HCL 10MG/2ML VIAL IV PRN (01:15)
[2020-09-21] MEDS: LORAZEPAM 2MG/ML CPJ IV PRN ×4 (01:15→21:50)
[2020-09-21] MEDS: SODIUM CHLORIDE 0.9% 1,000 ML IV SCH ×3 (01:26→21:27)
[2020-09-21 04:00] VITALS: BP 164/63
[2020-09-21] MEDS: MORPHINE SULFATE 2 MG/ML CPJ (NOT FOR IM USE) IV PRN ×4 (04:15→17:54)
[2020-09-21] MEDS: METOPROLOL TARTRATE 50MG TABLET PO SCH ×3 (06:00→21:25)
[2020-09-21 06:40] LABS: HEMATOCRIT. 29.5 % (36.0-48.0); HEMOGLOBIN. 9.8 g/dL (12.0-16.0); MEAN CORPUSCULAR HEMOGLOBIN 31.2 pg (28.0-32.0); MEAN CORPUSCULAR VOLUME 93.9 fL (81.0-99.0); MEAN PLATELET VOLUME 10.3 fl (7.4-10.4); PLATELET 168 x1000/uL (130-400); RED BLOOD CELL COUNT 3.14 mill/uL (4.2-5.4); RED CELL DISTRIBUTION WIDTH 13.7 % (11.6-14.6)
[2020-09-21] MEDS: BLOOD SUGAR DIAGNOSTIC STRIP TEST SCH ×4 (07:22→21:26)
[2020-09-21] MEDS: INSULIN LISPRO 100 UNITS/ML SUBCUT SCH ×4 (07:22→21:00)
[2020-09-21 08:00] VITALS: BP_SYST 120; BP_SYST 193; BP_DIAS 64; BP_DIAS 84
[2020-09-21] MEDS: THIAMINE HCL 100MG TABLET PO SCH (08:10)
[2020-09-21] MEDS: ACETAMINOPHEN 325MG TABLET PO PRN (08:10)
[2020-09-21] MEDS: PANTOPRAZOLE SODIUM 40 MG/VIAL IV SCH ×2 (08:10→17:38)
[2020-09-21] MEDS: ASPIRIN 81MG TABLET PO SCH (08:10)
[2020-09-21] MEDS: HYDRALAZINE HCL 50MG TABLET PO SCH ×3 (08:10→21:26)
[2020-09-21] MEDS: ENOXAPARIN 30MG/0.3ML SYR SUBCUT SCH (08:11)
[2020-09-21] MEDS: AMLODIPINE 2.5MG TABLET PO SCH (08:12)
[2020-09-21] MEDS ORDERED: REGADENOSON 0.4 MG/5 ML IV NR (09:00)
[2020-09-21] MEDS: CLOPIDOGREL 75MG TABLET PO SCH (09:20)
[2020-09-21] MEDS: AMLODIPINE 5MG TABLET PO SCH ×2 (09:20→21:26)
[2020-09-21 10:17] LABS: PLATELET ESTIMATE NORMAL
[2020-09-21] MEDS: GABAPENTIN 300MG CAPSULE PO SCH ×2 (11:46→21:25)
[2020-09-21 12:00] VITALS: BP 127/48
[2020-09-21] MEDS ORDERED: GABAPENTIN 400MG CAPSULE PO SCH (13:30)
[2020-09-21] MEDS ORDERED: GABAPENTIN 300MG CAPSULE PO SCH (14:00)
[2020-09-21] MEDS ORDERED: POTASSIUM CHLORIDE 20MEQ TABLET SR PO NR (15:15)
[2020-09-21 16:00] VITALS: BP 123/59
[2020-09-21 20:00] VITALS: BP 156/53
[2020-09-21] MEDS ORDERED: CEFTRIAXONE 1,000 MG in DEXTROSE 5% WATER 50 ML IV SCH (20:00)
[2020-09-21] MEDS: ATORVASTATIN CALCIUM 40MG TABLET PO SCH (21:25)
[2020-09-21] MEDS: CEFTRIAXONE 1,000 MG in DEXTROSE 5% WATER 50 ML IV SCH (22:58)
[2020-09-22] VITALS: BP 126/54
[2020-09-22] MEDS: DEXT 5%/0.9% NACL 1,000 ML IV SCH (03:45)
[2020-09-22 04:00] VITALS: BP 144/58
[2020-09-22] MEDS: METOPROLOL TARTRATE 50MG TABLET PO SCH ×3 (05:35→22:00)
[2020-09-22] MEDS: GABAPENTIN 300MG CAPSULE PO SCH ×3 (05:35→22:47)
[2020-09-22] MEDS: HYDRALAZINE HCL 50MG TABLET PO SCH ×3 (05:36→22:44)
[2020-09-22] MEDS: LORAZEPAM 2MG/ML CPJ IV PRN ×2 (05:47→21:15)
[2020-09-22] MEDS: INSULIN LISPRO 100 UNITS/ML SUBCUT SCH ×4 (06:15→23:12)
[2020-09-22] MEDS: BLOOD SUGAR DIAGNOSTIC STRIP TEST SCH ×4 (06:15→21:00)
[2020-09-22] MEDS: SODIUM CHLORIDE 0.9% 1,000 ML IV SCH ×2 (07:30→17:14)
[2020-09-22 08:00] VITALS: BP 152/58
[2020-09-22 08:09] LABS: HEMATOCRIT. 26.5 % (36.0-48.0); HEMOGLOBIN. 8.8 g/dL (12.0-16.0); MEAN CORPUSCULAR VOLUME 93.4 fL (81.0-99.0); MEAN PLATELET VOLUME 10.3 fl (7.4-10.4); PLATELET 148 x1000/uL (130-400); RED BLOOD CELL COUNT 2.84 mill/uL (4.2-5.4); RED CELL DISTRIBUTION WIDTH 13.8 % (11.6-14.6)
[2020-09-22] MEDS: PANTOPRAZOLE SODIUM 40 MG/VIAL IV SCH ×2 (08:38→17:00)
[2020-09-22] MEDS: CLOPIDOGREL 75MG TABLET PO SCH (08:38)
[2020-09-22] MEDS: THIAMINE HCL 100MG TABLET PO SCH (08:38)
[2020-09-22] MEDS: ASPIRIN 81MG TABLET PO SCH (08:38)
[2020-09-22] MEDS: AMLODIPINE 5MG TABLET PO SCH ×2 (08:38→21:00)
[2020-09-22] MEDS: ENOXAPARIN 30MG/0.3ML SYR SUBCUT SCH (08:41)
[2020-09-22] MEDS ORDERED: REGADENOSON 0.4 MG/5 ML IV ONE (09:32)
[2020-09-22] MEDS: MORPHINE SULFATE 2 MG/ML CPJ (NOT FOR IM USE) IV PRN ×2 (10:47→19:42)
[2020-09-22 12:00] VITALS: BP 130/93
[2020-09-22] MEDS ORDERED: VANCOMYCIN 1500MG in DEXTROSE 5% WATER 250ML IV SCH (13:00)
[2020-09-22] MEDS ORDERED: MORPHINE SULFATE 2 MG/ML CPJ (NOT FOR IM USE) IV NR (13:45)
[2020-09-22] MEDS: METOCLOPRAMIDE HCL 10MG/2ML VIAL IV PRN (13:54)
[2020-09-22 13:55] LABS: PLATELET ESTIMATE NORMAL
[2020-09-22 16:00] VITALS: BP 136/71
[2020-09-22 20:00] VITALS: BP 114/48
[2020-09-22] MEDS: ATORVASTATIN CALCIUM 40MG TABLET PO SCH (21:00)
[2020-09-22] MEDS: CEFTRIAXONE 1,000 MG in DEXTROSE 5% WATER 50 ML IV SCH (23:00)
[2020-09-23] VITALS (7 sets, daily range): BP systolic 95–183; BP diastolic 49–80
[2020-09-23] MEDS: HYDRALAZINE HCL 50MG TABLET PO SCH (06:00)
[2020-09-23] MEDS: GABAPENTIN 300MG CAPSULE PO SCH ×3 (06:00→20:18)
[2020-09-23] MEDS: METOPROLOL TARTRATE 50MG TABLET PO SCH ×3 (06:00→22:00)
[2020-09-23] MEDS: BLOOD SUGAR DIAGNOSTIC STRIP TEST SCH ×4 (07:10→21:00)
[2020-09-23] MEDS: INSULIN LISPRO 100 UNITS/ML SUBCUT SCH ×3 (07:40→22:27)
[2020-09-23] MEDS: AMLODIPINE 5MG TABLET PO SCH (09:00)
[2020-09-23] MEDS ORDERED: VANCOMYCIN 750 MG PREMIX 150 ML IV SCH (09:00)
[2020-09-23 10:01] LABS: HEMATOCRIT. 23.2 % (36.0-48.0); HEMOGLOBIN. 7.6 g/dL (12.0-16.0); MEAN CORPUSCULAR HEMOGLOBIN 30.7 pg (28.0-32.0); MEAN CORPUSCULAR VOLUME 93.1 fL (81.0-99.0); MEAN PLATELET VOLUME 9.9 fl (7.4-10.4); PLATELET 140 x1000/uL (130-400); RED BLOOD CELL COUNT 2.49 mill/uL (4.2-5.4); RED CELL DISTRIBUTION WIDTH 13.8 % (11.6-14.6)
[2020-09-23] MEDS: MORPHINE SULFATE 2 MG/ML CPJ (NOT FOR IM USE) IV PRN ×3 (10:15→20:12)
[2020-09-23] MEDS: ENOXAPARIN 30MG/0.3ML SYR SUBCUT SCH (10:16)
[2020-09-23] MEDS: ASPIRIN 81MG TABLET PO SCH (10:17)
[2020-09-23] MEDS: CLOPIDOGREL 75MG TABLET PO SCH (10:17)
[2020-09-23] MEDS: LORAZEPAM 2MG/ML CPJ IV PRN (12:53)
[2020-09-23] MEDS: THIAMINE HCL 100MG TABLET PO SCH (12:55)
[2020-09-23] MEDS: PANTOPRAZOLE SODIUM 40 MG/VIAL IV SCH (12:56)
[2020-09-23] MEDS: HYDRALAZINE HCL 100MG TABLET PO SCH ×2 (14:14→22:00)
[2020-09-23] MEDS ORDERED: VANCOMYCIN 750 MG PREMIX 150 ML IV NR (15:00)
[2020-09-23] MEDS ORDERED: POTASSIUM CHLORIDE INJ 40 MEQ in DEXT 5% WATER 250 ML IV SCH (15:00)
[2020-09-23] MEDS: ATORVASTATIN CALCIUM 40MG TABLET PO SCH (20:18)
[2020-09-23 21:13] LABS: PLATELET ESTIMATE NORMAL
[2020-09-24] VITALS: BP 118/48
[2020-09-24] MEDS: MORPHINE SULFATE 2 MG/ML CPJ (NOT FOR IM USE) IV PRN ×5 (00:54→21:40)
[2020-09-24] MEDS: SENNOSIDES/DOCUSATE SOD 8.6/50MG TABLET PO SCH ×2 (02:57→21:35)
[2020-09-24] MEDS: CEFTRIAXONE 1,000 MG in DEXTROSE 5% WATER 50 ML IV SCH ×2 (02:58→21:36)
[2020-09-24 04:00] VITALS: BP 136/79
[2020-09-24] MEDS: HYDRALAZINE HCL 100MG TABLET PO SCH ×3 (06:00→21:36)
[2020-09-24] MEDS: GABAPENTIN 300MG CAPSULE PO SCH ×3 (06:00→21:34)
[2020-09-24] MEDS: METOPROLOL TARTRATE 50MG TABLET PO SCH ×3 (06:00→21:36)
[2020-09-24] MEDS: BLOOD SUGAR DIAGNOSTIC STRIP TEST SCH ×4 (07:20→21:37)
[2020-09-24] MEDS: INSULIN LISPRO 100 UNITS/ML SUBCUT SCH ×4 (07:50→21:37)
[2020-09-24 08:00] VITALS: BP 142/72
[2020-09-24] MEDS: ASPIRIN 81MG TABLET PO SCH (09:00)
[2020-09-24] MEDS: DOCUSATE SODIUM 100MG CAPSULE PO SCH ×3 (09:00→17:00)
[2020-09-24] MEDS: PANTOPRAZOLE SODIUM 40 MG/VIAL IV SCH ×2 (09:00→17:00)
[2020-09-24] MEDS: SODIUM CHLORIDE 0.9% 1,000 ML IV SCH ×2 (09:30→19:30)
[2020-09-24 10:48] LABS: HEMATOCRIT. 23.4 % (36.0-48.0); HEMOGLOBIN. 7.8 g/dL (12.0-16.0); MEAN CORPUSCULAR HEMOGLOBIN 31.1 pg (28.0-32.0); MEAN CORPUSCULAR VOLUME 93.9 fL (81.0-99.0); PLATELET 150 x1000/uL (130-400); RED CELL DISTRIBUTION WIDTH 14.2 % (11.6-14.6)
[2020-09-24] MEDS: AMLODIPINE 10MG TABLET PO SCH (10:52)
[2020-09-24] MEDS: THIAMINE HCL 100MG TABLET PO SCH (10:53)
[2020-09-24] MEDS: LORAZEPAM 2MG/ML CPJ IV PRN ×2 (11:50→21:38)
[2020-09-24 12:00] VITALS: BP 132/72
[2020-09-24 16:00] VITALS: BP 130/53
[2020-09-24] MEDS ORDERED: VANCOMYCIN 750 MG PREMIX 150 ML IV SCH (18:00)
[2020-09-24 20:00] VITALS: BP 152/76
[2020-09-24 21:10] LABS: PLATELET ESTIMATE NORMAL
[2020-09-24] MEDS: ACETAMINOPHEN 325MG TABLET PO PRN (21:35)
[2020-09-24] MEDS: ATORVASTATIN CALCIUM 40MG TABLET PO SCH (21:36)
[2020-09-24] MEDS ORDERED: ACETAMINOPHEN 325MG TABLET PO PRN (23:30)
[2020-09-25] VITALS: BP 106/57
[2020-09-25 04:00] VITALS: BP 161/73
[2020-09-25] MEDS: SODIUM CHLORIDE 0.9% 1,000 ML IV SCH ×2 (06:23→22:31)
[2020-09-25] MEDS: MORPHINE SULFATE 2 MG/ML CPJ (NOT FOR IM USE) IV PRN ×4 (06:23→22:22)
[2020-09-25] MEDS: GABAPENTIN 300MG CAPSULE PO SCH ×3 (06:25→22:21)
[2020-09-25] MEDS: HYDRALAZINE HCL 100MG TABLET PO SCH ×3 (06:25→22:21)
[2020-09-25] MEDS: METOPROLOL TARTRATE 50MG TABLET PO SCH ×3 (06:26→22:21)
[2020-09-25] MEDS: BLOOD SUGAR DIAGNOSTIC STRIP TEST SCH ×4 (06:26→21:52)
[2020-09-25] MEDS: INSULIN LISPRO 100 UNITS/ML SUBCUT SCH ×5 (07:50→22:48)
[2020-09-25 08:00] VITALS: BP 146/55
[2020-09-25] MEDS: DOCUSATE SODIUM 100MG CAPSULE PO SCH ×2 (09:22→17:00)
[2020-09-25] MEDS: THIAMINE HCL 100MG TABLET PO SCH (09:22)
[2020-09-25] MEDS: AMLODIPINE 10MG TABLET PO SCH (09:23)
[2020-09-25] MEDS: PANTOPRAZOLE SODIUM 40 MG/VIAL IV SCH ×2 (09:29→17:36)
[2020-09-25 09:58] LABS: BASOPHILS % 0.5 % (0.0-2.0); EOSINOPHILS % 0.4 % (0.0-5.0); HEMATOCRIT. 23.6 % (36.0-48.0); LYMPHOCYTES % 17.6 % (20.0-50.0); MEAN CORPUSCULAR HEMOGLOBIN 31.2 pg (28.0-32.0); MEAN CORPUSCULAR VOLUME 92.4 fL (81.0-99.0); MEAN PLATELET VOLUME 9.3 fl (7.4-10.4); MONOCYTES % 13.9 % (2.0-8.0); NEUTROPHILS % 67.6 % (40.0-76.0); PLATELET 164 x1000/uL (130-400); RED BLOOD CELL COUNT 2.55 mill/uL (4.2-5.4); RED CELL DISTRIBUTION WIDTH 13.5 % (11.6-14.6)
[2020-09-25 10:08] LABS: PROTHROMBIN TIME 10.7 sec (9.6-11.0)
[2020-09-25 12:00] VITALS: BP 153/56
[2020-09-25 16:00] VITALS: BP 158/68
[2020-09-25 20:00] VITALS: BP 180/81
[2020-09-25] MEDS ORDERED: CEFTRIAXONE 1 G PREMIX 50 ML IV SCH (21:00)
[2020-09-25] MEDS: SENNOSIDES/DOCUSATE SOD 8.6/50MG TABLET PO SCH (22:21)
[2020-09-25] MEDS: ATORVASTATIN CALCIUM 40MG TABLET PO SCH (22:21)
[2020-09-25] MEDS: CEFTRIAXONE 1,000 MG in DEXTROSE 5% WATER 50 ML IV SCH (22:53)
[2020-09-26] VITALS: BP_SYST 109; BP_SYST 153; BP_DIAS 70; BP_DIAS 73
[2020-09-26] MEDS: MORPHINE SULFATE 2 MG/ML CPJ (NOT FOR IM USE) IV PRN ×3 (03:30→13:18)
[2020-09-26 04:00] VITALS: BP 142/98
[2020-09-26] MEDS: GABAPENTIN 300MG CAPSULE PO SCH ×3 (06:01→21:24)
[2020-09-26] MEDS: METOPROLOL TARTRATE 50MG TABLET PO SCH ×3 (06:01→21:24)
[2020-09-26] MEDS: HYDRALAZINE HCL 100MG TABLET PO SCH ×3 (06:02→21:24)
[2020-09-26] MEDS: BLOOD SUGAR DIAGNOSTIC STRIP TEST SCH ×4 (07:40→21:25)
[2020-09-26 08:00] VITALS: BP 160/68
[2020-09-26] MEDS: INSULIN LISPRO 100 UNITS/ML SUBCUT SCH ×4 (08:10→22:28)
[2020-09-26] MEDS: AMLODIPINE 10MG TABLET PO SCH (09:00)
[2020-09-26] MEDS: PANTOPRAZOLE SODIUM 40 MG/VIAL IV SCH ×2 (09:23→18:34)
[2020-09-26] MEDS: DOCUSATE SODIUM 100MG CAPSULE PO SCH ×2 (09:24→18:34)
[2020-09-26] MEDS: THIAMINE HCL 100MG TABLET PO SCH (09:24)
[2020-09-26 12:00] VITALS: BP 179/71
[2020-09-26 16:00] VITALS: BP 148/59
[2020-09-26 16:13] LABS: BASOPHILS % 0.4 % (0.0-2.0); EOSINOPHILS % 0.1 % (0.0-5.0); HEMATOCRIT. 23.2 % (36.0-48.0); HEMOGLOBIN. 7.9 g/dL (12.0-16.0); LYMPHOCYTES % 11.4 % (20.0-50.0); MEAN CORPUSCULAR HEMOGLOBIN 31.4 pg (28.0-32.0); MEAN CORPUSCULAR VOLUME 92.9 fL (81.0-99.0); MEAN PLATELET VOLUME 9.9 fl (7.4-10.4); MONOCYTES % 9.5 % (2.0-8.0); NEUTROPHILS % 78.6 % (40.0-76.0); PLATELET 166 x1000/uL (130-400); RED CELL DISTRIBUTION WIDTH 13.8 % (11.6-14.6)
[2020-09-26 20:00] VITALS: BP 143/54
[2020-09-26] MEDS: ATORVASTATIN CALCIUM 40MG TABLET PO SCH (21:24)
[2020-09-26] MEDS: SENNOSIDES/DOCUSATE SOD 8.6/50MG TABLET PO SCH (21:25)
[2020-09-26] MEDS: CEFTRIAXONE 1,000 MG in DEXTROSE 5% WATER 50 ML IV SCH (21:25)
[2020-09-26] MEDS: INSULIN GLARGINE UD 100 UNITS/ML SYR SUBCUT SCH (22:27)
[2020-09-27] VITALS: BP 131/46
[2020-09-27 04:00] VITALS: BP 128/55
[2020-09-27] MEDS: GABAPENTIN 300MG CAPSULE PO SCH ×3 (05:18→22:50)
[2020-09-27] MEDS: HYDRALAZINE HCL 100MG TABLET PO SCH ×3 (05:18→22:50)
[2020-09-27] MEDS: METOPROLOL TARTRATE 50MG TABLET PO SCH ×3 (05:19→22:49)
[2020-09-27 07:39] LABS: BASOPHILS % 0.7 % (0.0-2.0); EOSINOPHILS % 0.1 % (0.0-5.0); HEMATOCRIT. 23.7 % (36.0-48.0); HEMOGLOBIN. 7.9 g/dL (12.0-16.0); MEAN CORPUSCULAR HEMOGLOBIN 30.9 pg (28.0-32.0); MEAN CORPUSCULAR VOLUME 92.3 fL (81.0-99.0); MEAN PLATELET VOLUME 10.3 fl (7.4-10.4); MONOCYTES % 7.3 % (2.0-8.0); NEUTROPHILS % 80.9 % (40.0-76.0); PLATELET 181 x1000/uL (130-400); RED BLOOD CELL COUNT 2.56 mill/uL (4.2-5.4); RED CELL DISTRIBUTION WIDTH 14.2 % (11.6-14.6)
[2020-09-27] MEDS: BLOOD SUGAR DIAGNOSTIC STRIP TEST SCH ×4 (07:55→21:00)
[2020-09-27 08:00] VITALS: BP 151/75
[2020-09-27] MEDS: DOCUSATE SODIUM 100MG CAPSULE PO SCH ×2 (09:53→17:00)
[2020-09-27] MEDS: PANTOPRAZOLE SODIUM 40 MG/VIAL IV SCH ×2 (09:53→17:00)
[2020-09-27] MEDS: AMLODIPINE 10MG TABLET PO SCH (09:53)
[2020-09-27] MEDS: THIAMINE HCL 100MG TABLET PO SCH (09:54)
[2020-09-27] MEDS: INSULIN LISPRO 100 UNITS/ML SUBCUT SCH ×4 (09:54→21:00)
[2020-09-27 12:00] VITALS: BP 118/76
[2020-09-27] MEDS ORDERED: ACETAMINOPHEN 650MG/20.3ML UDC PO PRN (14:45)
[2020-09-27 16:00] VITALS: BP 124/44
[2020-09-27 20:00] VITALS: BP 132/84
[2020-09-27] MEDS: INSULIN GLARGINE UD 100 UNITS/ML SYR SUBCUT SCH (22:00)
[2020-09-27] MEDS: SENNOSIDES/DOCUSATE SOD 8.6/50MG TABLET PO SCH (22:50)
[2020-09-27] MEDS: CEFTRIAXONE 1,000 MG in DEXTROSE 5% WATER 50 ML IV SCH (22:50)
[2020-09-27] MEDS: ATORVASTATIN CALCIUM 40MG TABLET PO SCH (22:50)
[2020-09-28] MEDS: HYDRALAZINE HCL 100MG TABLET PO SCH ×3 (05:57→22:14)
[2020-09-28] MEDS: METOPROLOL TARTRATE 50MG TABLET PO SCH ×3 (05:57→22:15)
[2020-09-28] MEDS: GABAPENTIN 300MG CAPSULE PO SCH ×3 (05:57→22:14)
[2020-09-28 08:00] VITALS: BP 134/43
[2020-09-28] MEDS: INSULIN LISPRO 100 UNITS/ML SUBCUT SCH ×4 (08:10→21:00)
[2020-09-28] MEDS: BLOOD SUGAR DIAGNOSTIC STRIP TEST SCH ×4 (08:16→21:00)
[2020-09-28] MEDS: THIAMINE HCL 100MG TABLET PO SCH (09:00)
[2020-09-28 09:56] LABS: BASOPHILS % 0.5 % (0.0-2.0); EOSINOPHILS % 0.2 % (0.0-5.0); LYMPHOCYTES % 15.5 % (20.0-50.0); MEAN CORPUSCULAR HEMOGLOBIN 30.6 pg (28.0-32.0); MEAN CORPUSCULAR VOLUME 93.5 fL (81.0-99.0); MEAN PLATELET VOLUME 10.5 fl (7.4-10.4); MONOCYTES % 10.3 % (2.0-8.0); NEUTROPHILS % 73.5 % (40.0-76.0); PLATELET 142 x1000/uL (130-400); RED BLOOD CELL COUNT 2.11 mill/uL (4.2-5.4)
[2020-09-28 10:02] LABS: HEMATOCRIT. 19.7 % (36.0-48.0); HEMOGLOBIN. 6.5 g/dL (12.0-16.0)
[2020-09-28] MEDS: DOCUSATE SODIUM 100MG CAPSULE PO SCH ×2 (10:36→17:31)
[2020-09-28] MEDS: PANTOPRAZOLE SODIUM 40 MG/VIAL IV SCH ×2 (10:36→17:30)
[2020-09-28] MEDS: AMLODIPINE 10MG TABLET PO SCH (10:37)
[2020-09-28 12:00] VITALS: BP 163/51
[2020-09-28] MEDS: POTASSIUM CHLORIDE 20MEQ TABLET SR PO SCH ×2 (13:21→22:14)
[2020-09-28] MEDS: MORPHINE SULFATE 2 MG/ML CPJ (NOT FOR IM USE) IV PRN ×2 (14:10→20:02)
[2020-09-28 15:51] LABS: BASOPHILS % 0.4 % (0.0-2.0); EOSINOPHILS % 0.6 % (0.0-5.0); HEMATOCRIT. 22.1 % (36.0-48.0); HEMOGLOBIN. 7.3 g/dL (12.0-16.0); LYMPHOCYTES % 15.8 % (20.0-50.0); MEAN CORPUSCULAR HEMOGLOBIN 30.3 pg (28.0-32.0); MEAN CORPUSCULAR VOLUME 91.5 fL (81.0-99.0); MEAN PLATELET VOLUME 10.2 fl (7.4-10.4); MONOCYTES % 12.3 % (2.0-8.0); NEUTROPHILS % 70.9 % (40.0-76.0); PLATELET 194 x1000/uL (130-400); RED BLOOD CELL COUNT 2.41 mill/uL (4.2-5.4); RED CELL DISTRIBUTION WIDTH 14.1 % (11.6-14.6)
[2020-09-28 16:00] VITALS: BP 119/52
[2020-09-28 20:00] VITALS: BP 124/52
[2020-09-28] MEDS: SENNOSIDES/DOCUSATE SOD 8.6/50MG TABLET PO SCH (22:15)
[2020-09-28] MEDS: ATORVASTATIN CALCIUM 40MG TABLET PO SCH (22:15)
[2020-09-28] MEDS: CEFTRIAXONE 1,000 MG in DEXTROSE 5% WATER 50 ML IV SCH (22:16)
[2020-09-28] MEDS: INSULIN GLARGINE UD 100 UNITS/ML SYR SUBCUT SCH (22:16)
[2020-09-29] VITALS: BP 117/50
[2020-09-29 04:00] VITALS: BP 123/58
[2020-09-29] MEDS: GABAPENTIN 300MG CAPSULE PO SCH ×3 (05:23→21:18)
[2020-09-29] MEDS: HYDRALAZINE HCL 100MG TABLET PO SCH ×3 (05:23→21:18)
[2020-09-29] MEDS: METOPROLOL TARTRATE 50MG TABLET PO SCH ×3 (05:23→21:18)
[2020-09-29] MEDS: POTASSIUM CHLORIDE 20MEQ TABLET SR PO SCH ×2 (05:23→13:18)
[2020-09-29] MEDS: MORPHINE SULFATE 2 MG/ML CPJ (NOT FOR IM USE) IV PRN ×4 (05:24→18:36)
[2020-09-29] MEDS: BLOOD SUGAR DIAGNOSTIC STRIP TEST SCH ×4 (06:29→21:20)
[2020-09-29 06:47] LABS: BASOPHILS % 0.3 % (0.0-2.0); EOSINOPHILS % 0.6 % (0.0-5.0); HEMATOCRIT. 22.6 % (36.0-48.0); HEMOGLOBIN. 7.6 g/dL (12.0-16.0); LYMPHOCYTES % 16.1 % (20.0-50.0); MEAN CORPUSCULAR HEMOGLOBIN 30.7 pg (28.0-32.0); MEAN CORPUSCULAR VOLUME 91.4 fL (81.0-99.0); MEAN PLATELET VOLUME 9.9 fl (7.4-10.4); MONOCYTES % 12.4 % (2.0-8.0); NEUTROPHILS % 70.6 % (40.0-76.0); PLATELET 216 x1000/uL (130-400); RED BLOOD CELL COUNT 2.47 mill/uL (4.2-5.4); RED CELL DISTRIBUTION WIDTH 14.2 % (11.6-14.6)
[2020-09-29 08:00] VITALS: BP 136/55
[2020-09-29] MEDS: INSULIN LISPRO 100 UNITS/ML SUBCUT SCH ×4 (08:10→21:20)
[2020-09-29] MEDS: DOCUSATE SODIUM 100MG CAPSULE PO SCH ×2 (10:03→17:29)
[2020-09-29] MEDS: THIAMINE HCL 100MG TABLET PO SCH (10:03)
[2020-09-29] MEDS: AMLODIPINE 10MG TABLET PO SCH (10:03)
[2020-09-29] MEDS: PANTOPRAZOLE SODIUM 40 MG/VIAL IV SCH ×2 (10:04→17:35)
[2020-09-29 12:00] VITALS: BP 140/61
[2020-09-29] MEDS ORDERED: ASCORBIC ACID 500 MG TABLET PO SCH (14:30)
[2020-09-29 16:00] VITALS: BP_SYST 113; BP_DIAS 7; BP_DIAS 71
[2020-09-29] MEDS ORDERED: HYDR100T26 PO (16:02)
[2020-09-29] MEDS ORDERED: FERR325T23 PO (16:02)
[2020-09-29] MEDS ORDERED: METO5TAB86 MT (16:02)
[2020-09-29] MEDS ORDERED: OMEP20TA2 MT (16:02)
[2020-09-29] MEDS ORDERED: AMLO10TA80 PO (16:02)
[2020-09-29] MEDS ORDERED: METO-539 PO (16:02)
[2020-09-29] MEDS ORDERED: LIP40 PO (16:02)
[2020-09-29] MEDS ORDERED: DOCU-150 PO (16:02)
[2020-09-29] MEDS ORDERED: FERROUS SULFATE 325MG TABLET PO SCH (17:00)
[2020-09-29 20:00] VITALS: BP 162/63
[2020-09-29] MEDS: ATORVASTATIN CALCIUM 40MG TABLET PO SCH (21:18)
[2020-09-29] MEDS: CEFTRIAXONE 1,000 MG in DEXTROSE 5% WATER 50 ML IV SCH (21:18)
[2020-09-29] MEDS: INSULIN GLARGINE UD 100 UNITS/ML SYR SUBCUT SCH (21:19)
[2020-09-29] MEDS: SENNOSIDES/DOCUSATE SOD 8.6/50MG TABLET PO SCH (21:20)
[2020-09-30] VITALS: BP 140/52
== END 2020-09-30 01:19 | disposition home or self-care (01) | DRG 48 ==
LOC: ER 07:42 → MICUSO 13:16 → EDBEDREQTM 13:19 → EDBEDREQ 13:19 → 7WST 09-16 03:37 → 5WST 09-17 10:10 → 8WST 09-18 17:40 → 6WST 09-23 17:32 → 7WST 09-25 18:09
PROVIDERS: ADMIT Internal Medicine Nephrology; ATTEND Internal Medicine Nephrology
PROC: 02HV33Z Insertion of Infusion Device into Superior Vena Cava, Percutaneous Approach (ICD-10-PCS; principal; 2020-09-16)
PROC: B548ZZA Ultrasonography of Superior Vena Cava, Guidance (ICD-10-PCS; 2020-09-16)
DX: E11.43 Type 2 diabetes mellitus with diabetic autonomic (poly)neuropathy (principal); I21.4 Non-ST elevation (NSTEMI) myocardial infarction; U07.1 COVID-19; N17.0 Acute kidney failure with tubular necrosis; E11.10 Type 2 diabetes mellitus with ketoacidosis without coma; G92 Toxic encephalopathy; D64.9 Anemia, unspecified; E11.22 Type 2 diabetes mellitus with diabetic chronic kidney disease; E11.51 Type 2 diabetes mellitus with diabetic peripheral angiopathy without gangrene; E66.9 Obesity, unspecified; E78.5 Hyperlipidemia, unspecified; E87.6 Hypokalemia; F12.90 Cannabis use, unspecified, uncomplicated; G89.29 Other chronic pain; I12.9 Hypertensive chronic kidney disease with stage 1 through stage 4 chronic kidney disease, or unspecified chronic kidney disease; I16.0 Hypertensive urgency; I25.10 Atherosclerotic heart disease of native coronary artery without angina pectoris; K29.60 Other gastritis without bleeding; K31.84 Gastroparesis; N18.9 Chronic kidney disease, unspecified; I31.3 Pericardial effusion (noninflammatory); E78.00 Pure hypercholesterolemia, unspecified; I65.29 Occlusion and stenosis of unspecified carotid artery; I51.7 Cardiomegaly; K57.90 Diverticulosis of intestine, part unspecified, without perforation or abscess without bleeding; N20.0 Calculus of kidney; Z89.429 Acquired absence of other toe(s), unspecified side; Z79.82 Long term (current) use of aspirin; Z87.891 Personal history of nicotine dependence; Z88.5 Allergy status to narcotic agent; Z88.0 Allergy status to penicillin; Z88.8 Allergy status to other drugs, medicaments and biological substances; Z79.4 Long term (current) use of insulin; Z79.899 Other long term (current) drug therapy; K52.9 Noninfective gastroenteritis and colitis, unspecified
CPT/HCPCS: 36415; 36600; 70544; 70553; 71045; 74176; 76937; 78452; 80048; 80053; 80202; 80305; 80320; 81003; 82010; 82140; 82330; 82375; 82550; 82553; 82607; 82746; 82805; 82962; 83036; 83540; 83550; 83735; 84145; 84439; 84443; 84481; 84484; 85014; 85018; 85025; 85651; 86141; 86850; 86900; 86920; 87426; 87635; 93005; 93017; 93306; 96374; 99285; A9500; C1725; C1893; C9113; J0456; J0696; J1650; J1815; J2060; J2270; J2405; J2765; J2785; J3370; J3480; J3490; J7030; J7040; J7042; J7060; U0003; G0480